=== PATIENT | male | born 1990 | race Caucasian/White ===

== ENCOUNTER 2018-10-02 06:46 | Emergency (ER) | payer OTHER ==
[~2018-10-02] VITALS: Ht 167.6 cm; Wt 88.3 kg
[~2018-10-02 06:46] MED LIST: ACET500C5 PO; AMOX500C2 PO; CIPR500T4 PO; DICY20TA59 PO; HYDR-4011 PO; IBUP-1542 PO; LORA1TAB54 PO; METR500T PO; ONDA4TAB14 PO; PROM6.25 PO
[2018-10-02 06:50] VITALS: Ht 167.6 cm; Wt 88.3 kg
[2018-10-02] MEDS ORDERED: KETOROLAC 15 MG INJ IV STA (07:02)
[2018-10-02] MEDS ORDERED: SOD CHLORIDE 0.9% 1,000 ML IV STA (07:02)
[2018-10-02] MEDS ORDERED: ONDANSETRON 4 MG INJ IV STA (07:02)
[2018-10-02] MEDS ORDERED: OXYCODONE/ACETAMINOPHEN (5/325) TAB PO ONE (07:30)
--- NOTE | 2018-10-02 08:43 | ERD ---
ER Documentation Chief Complaint Chief Complaint headache x 2 weeks HPI 28-year-old man complains of fever, headache, mild cough, body aches times 4-5 days he denies chest pain or shortness of breath, no neck pain or stiffness, no rash, no recent travel or sick contacts, no recent antibiotic use. Patient denies abdominal pain, no vomiting or diarrhea. Patient has had multiple ER visits for infectious illness, URI symptoms and is also had previous inpatient infectious disease consultation over the last 6 years. ROS All systems reviewed and are negative except as per history of present illness. Medications Home Meds Active Scripts Cephalexin* (Keflex*) 500 Mg Capsule, 500 MG PO TID for 7 Days, CAP Prov:IDANIA HOUSTON MD 10/02/18 Ibuprofen* (Motrin*) 600 Mg Tab, 600 MG PO Q8 PRN for PAIN AND/OR INFLAMMATION, #30 TAB Prov:IDANIA HOUSTON MD 10/02/18 Discontinued Reported Medications [None] No Conflict Check 03/03/10 Discontinued Scripts Metronidazole* (Flagyl*) 500 Mg Tablet, 500 MG PO TID for 7 Days, TAB Prov:SUZY MONTOYA NP 05/17/16 Ciprofloxacin Hcl* (Ciprofloxacin Hcl*) 500 Mg Tablet, 500 MG PO BID for 7 Days, TAB Prov:SUZY MONTOYA NP 05/17/16 Ondansetron (Ondansetron Odt) 4 Mg Tab.rapdis, 4 MG PO Q8 PRN for NAUSEA AND/OR VOMITING, #30 TAB Prov:SUZY MONTOYA NP 05/17/16 Ibuprofen* (Motrin*) 600 Mg Tab, 600 MG PO Q6H PRN for PAIN AND OR ELEVATED TEMP, #30 TAB Prov:SUZY MONTOYA NP 05/17/16 Dicyclomine Hcl* (Bentyl*) 20 Mg Tablet, 20 MG PO QID, #20 TAB Prov:SUZY MONTOYA NP 05/17/16 Hydrocodone/Acetaminophen ([place] 5-325 Tablet) 1 Each Tablet, 1 TAB PO Q6H PRN for PAIN, #20 TAB Prov:SUZY MONTOYA NP 05/17/16 Acetaminophen* (Tylophen*) 500 Mg Capsule, 1 CAP PO Q4 PRN for PAIN AND OR ELEVATED TEMP, #20 CAP Prov:FELICE MCCORMICKC 08/27/15 Promethazine w/Codeine* (Phenergan w/Codeine* Syrup) 5 Ml Syrup, 10 ML PO Q4H PRN for COUGH, #120 ML Prov:FELICE MCCORMICK-C 08/27/15 Loratadine/Pseudoephedrine* (Claritin-D* 12 Hr) 5-120 Mg Tab.er.12h, 1 TAB PO Q12, #10 TAB.SA Prov:FELICE MCCORMICKC 08/27/15 Amoxicillin* (Amoxicillin*) 500 Mg Cap, 500 MG PO BID for 10 Days, CAP Prov:FELICE MCCORMICK-C 08/27/15 Amoxicillin* (Amoxicillin*) 500 Mg Cap, 500 MG PO TID for 10 Days, CAP Prov:SUZY MONTOYA NP 03/15/15 Allergies Allergies: Coded Allergies: No Known Allergies (Verified Allergy, Mild, 05/16/16) PMhx/Soc Medical and Surgical Hx: pt denies Medical Hx, pt denies Surgical Hx History of Surgery: No Anesthesia Reaction: No Hx Neurological Disorder: No Hx Respiratory Disorders: No Hx Cardiac Disorders: No Hx Psychiatric Problems: No Hx Alcohol Use: No Hx Substance Use: No Hx Tobacco Use: No Smoking Status: Never smoker FmHx Family History: No diabetes Physical Exam Vitals Vital Signs Date Temp Pulse Resp B/P (MAP) Pulse Ox O2 O2 Flow FiO2 Time Delivery Rate 10/02/18 100.4 102 16 118/66 98 Room Air 08:10 (83) 10/02/18 103.6 110 28 143/91 97 06:50 (108) Physical Exam GENERAL: Well-developed, well-nourished, febrile, mild discomfort, nontoxic in appearance HEENT: Moist mucous membranes, pink conjunctiva, no cervical spine tenderness or step-off deformities, no goiter, no jaundice or icterus, extraocular movements intact without pain. No submandibular induration, and no pharyngeal erythema NEURO: Alert and oriented 3, cranial nerves II through XII intact bilaterally, pupils equal round reactive to light, no focal deficits or facial asymmetry, sensation intact distally Strength 5/5 in upper and lower extremities bilaterally CARDIAC: Tachycardic and regular, no murmurs rubs or gallops LUNGS: Clear bilaterally no wheezing crackles or stridor ABDOMEN: Soft nontender, no guarding, no rigidity, no rebound, no psoas sign no obturator sign. SKIN: Warm and dry to touch, no abrasions, contusions, or hematomas, no lacerations, no ecchymosis, no target lesions, and without ulcers EXTREMITIES: No clubbing cyanosis or edema, calves are bilaterally symmetrical, no Homans sign, no popliteal cord sign. Distal pulses equal and bilateral PSYCH: Anxious Result Diagram: 10/02/18 0705 10/02/18 0705 Results 24 hrs Laboratory Tests Test 10/02/18 06:59 10/02/18 07:02 10/02/18 07:05 10/02/18 08:54 POC Venous 0.7 mmol/L Lactate HIV (1&2) NEGATIVE Antibody White Blood Count 10.9 10^3/ul Red Blood Count 4.83 10^6/ul Hemoglobin 14.5 g/dl Hematocrit 41.5 % Mean Corpuscular 85.9 fl Volume Mean Corpuscular 30.0 pg Hemoglobin Mean Corpuscular 34.9 g/dl Hemoglobin Concen t Red Cell 12.3 % Distribution Width Platelet Count 195 10^3/UL Mean Platelet 11.1 fl Volume Immature 0.400 % Granulocytes % Neutrophils % 74.5 % Lymphocytes % 15.2 % Monocytes % 8.8 % Eosinophils % 0.7 % Basophils % 0.4 % Nucleated Red 0.0 /100WBC Blood Cells % Immature 0.040 10^3/ul Granulocytes # Neutrophils # 8.1 10^3/ul Lymphocytes # 1.7 10^3/ul Monocytes # 1.0 10^3/ul Eosinophils # 0.1 10^3/ul Basophils # 0.0 10^3/ul Nucleated Red 0.0 10^3/ul Blood Cells # Sodium Level 141 mmol/L Potassium Level 4.0 mmol/L Chloride Level 104 mmol/L Carbon Dioxide 28 mmol/L Level Anion Gap 9 Blood Urea 14 mg/dl Nitrogen Creatinine 0.87 mg/dl Est Glomerular > 60 mL/min Filtrat Rate mL/min Glucose Level 110 mg/dl Calcium Level 9.3 mg/dl Total Bilirubin 0.9 mg/dl Direct Bilirubin 0.00 mg/dl Indirect 0.9 mg/dl Bilirubin Aspartate Amino 37 IU/L Transf (AST/SGOT) Alanine 36 IU/L Aminotransferase (ALT/SGPT) Alkaline 78 IU/L Phosphatase Total Protein 7.4 g/dl Albumin 4.3 g/dl Globulin 3.10 g/dl Albumin/Globulin 1.38 Ratio Lipase 154 U/L Urine Color YELLOW Urine Clarity SLIGHTLY CLOUDY Urine pH 5.0 Urine Specific 1.014 Welch Urine Ketones NEGATIVE mg/dL Urine Nitrite NEGATIVE mg/dL Urine Bilirubin NEGATIVE mg/dL Urine NEGATIVE mg/dL Urobilinogen Urine Leukocyte TRACE More[place]ita/ul Esterase Urine Microscopic 1 /HPF RBC Urine Microscopic 9 /HPF WBC Urine Bacteria FEW /HPF Urine Mucus MANY /HPF Urine Hemoglobin NEGATIVE mg/dL Urine Glucose NEGATIVE mg/dL Urine Total NEGATIVE mg/dl Protein Current Medications Medications Dose Sig/Judith Start Time Status Last (Trade) Ordered Route PRN Stop Time Admin Dose Reason Admin Sodium 1,000 ml @ Q30M STAT 10/02/18 DC 10/02/18 Chloride 2,000 mls/hr IV 07:02 07:16 10/02/18 07:31 Ondansetron 4 mg ONCE STAT 10/02/18 DC 10/02/18 HCl (Zofran IV 07:02 07:42 Inj) 10/02/18 07:08 Ketorolac 15 mg ONCE STAT 10/02/18 DC 10/02/18 Tromethamine IV 07:02 07:42 (Toradol) 10/02/18 07:08 Oxycodone/ 1 tab ONCE ONCE 10/02/18 DC 10/02/18 Acetaminophen PO 07:30 07:42 (Percocet 10/02/18 07:31 (5/ 325)) Ceftriaxone 50 ml @ ONCE ONCE 10/02/18 DC 10/02/18 Sodium 100 mls/hr IVPB 09:30 09:47 10/02/18 09:59 Procedures/MDM IV line was established patient was placed on registered nurse cardiac telemetry rhythm strip revealed a sinus tachycardia at 110 bpm with upright P and T waves. Patient was febrile, blood cultures ordered results are pending I will follow-up. I administered 2 L normal saline IV, Toradol 15 mg IV, Zofran 4 mg IV, and Percocet 1 tablet p.o. CBC and electrolytes were normal, liver function tests were normal, urinalysis was positive for infection, lactic acid level was low. I do not suspect sepsis. Chest X-ray 1V Interpreted by me: Soft Tissue: No acute abnormalities Bones: No acute abnormalities Mediastinum/Cardiac Silhouette/Lungs: No acute abnormalities Influenza swabs were negative I did administer ceftriaxone 1 g IV x1. Patient's tachycardia resolved, vital signs are normal at this time, he is afebrile, he is tolerating p.o., and his pain is resolved. He looks well and will be discharged to follow-up with PMD. Differential diagnoses considered, included but not limited to acute coronary syndrome, pulmonary embolism, aortic dissection, abdominal aortic aneurysm, sepsis, stroke, meningitis, encephalitis, pneumonia, appendicitis, cholecystitis, bowel obstruction, pyelonephritis, nephrolithiasis, cystitis, as well as metabolic, hematologic, and electrolyte abnormalities. As well as abscess, cellulitis, fractures, and dislocations. Patient feels much better at this time, and vital signs are normal, symptoms have improved. I did give strict instructions to return to the ED if symptoms continue or worsen, patient will otherwise follow-up with primary care physician. Patient understood instructions and agreed to plan. Disclaimer: Inadvertent spelling and grammatical errors are likely due to EHR/dictation software use and do not reflect on the overall quality of patient care. Also, please note that the electronic time recorded on this note does not necessarily reflect the actual time of the patient encounter. Departure Diagnosis: Primary Impression: Upper respiratory infection URI type: acute nasopharyngitis (common cold) Qualified Codes: J00 - Acute nasopharyngitis [common cold] Additional Impressions: Acute UTI Headache Headache type: tension-type Headache chronicity pattern: acute headache Intractability: not intractable Qualified Codes: G44.209 - Tension-type headache, unspecified, not intractable Condition: IDANIA Bertrand MD Oct 02, 2018 08:43
[2018-10-02] MEDS ORDERED: CEFTRIAXONE 1 GM/50 ML (PMX) 50 ML IVPB ONE (09:30)
[2018-10-02] MEDS ORDERED: CEPH-443 PO (09:34)
[2018-10-02] MEDS ORDERED: IBUP-1542 PO (09:34)
[2018-10-02 10:30] VITALS: BP 103/58; PULSE 77; RESP 16
== END 2018-10-02 10:30 | disposition home or self-care (01) ==
LOC: E/R 06:46
DX: J00 Acute nasopharyngitis [common cold] (principal); N39.0 Urinary tract infection, site not specified; G44.209 Tension-type headache, unspecified, not intractable; R07.9 Chest pain, unspecified
CPT/HCPCS: 36415; 71045; 80053; 81001; 83605; 83690; 85025; 86703; 87040; 87086; 87400; 87536; 96374; 96375; J0696; J1885; J2405; J7030; Z7502; Z7610

== ENCOUNTER 2018-10-02 16:06 | Emergency (ER) | payer OTHER ==
[~2018-10-02] VITALS: Ht 172.7 cm; Wt 90.3 kg
[~2018-10-02 16:06] MED LIST changes: +CEPH-443 PO
[2018-10-02 16:16] VITALS: BP 133/73; PULSE 87; RESP 18; Ht 172.7 cm; Wt 90.3 kg
--- NOTE | 2018-10-02 19:35 | ERD ---
ER Documentation Chief Complaint Chief Complaint HEADACHE AND FEVER, DX UTI EARLIER TODAY, HPI Patient is a 28-year-old male who presents with fever. The patient was seen this morning and was diagnosed with UTI and URI. He was given a prescription for Keflex and ibuprofen. He has had symptoms for the past 2 weeks. He complains of back pain and fever. However he said he took the medicines and was still continued to have fever so came back to the emergency department for evaluation. Upon review of old medical records this is the patient's 13th visit to the ER since 2006. ROS All systems reviewed and are negative except as per history of present illness. Medications Home Meds Active Scripts Cephalexin* (Keflex*) 500 Mg Capsule, 500 MG PO TID for 7 Days, CAP Prov:IDANIA HOUSTON MD 10/02/18 Ibuprofen* (Motrin*) 600 Mg Tab, 600 MG PO Q8 PRN for PAIN AND/OR INFLAMMATION, #30 TAB Prov:IDANIA HOUSTON MD 10/02/18 Discontinued Reported Medications [None] No Conflict Check 03/03/10 Discontinued Scripts Metronidazole* (Flagyl*) 500 Mg Tablet, 500 MG PO TID for 7 Days, TAB Prov:SUZY MONTOYA NP 05/17/16 Ciprofloxacin Hcl* (Ciprofloxacin Hcl*) 500 Mg Tablet, 500 MG PO BID for 7 Days, TAB Prov:SUZY MONTOYA NP 05/17/16 Ondansetron (Ondansetron Odt) 4 Mg Tab.rapdis, 4 MG PO Q8 PRN for NAUSEA AND/OR VOMITING, #30 TAB Prov:SUZY MONTOYA NP 05/17/16 Ibuprofen* (Motrin*) 600 Mg Tab, 600 MG PO Q6H PRN for PAIN AND OR ELEVATED TEMP, #30 TAB Prov:SUZY MONTOYA NP 05/17/16 Dicyclomine Hcl* (Bentyl*) 20 Mg Tablet, 20 MG PO QID, #20 TAB Prov:SUZY MONTOYA NP 05/17/16 Hydrocodone/Acetaminophen ([employer] 5-325 Tablet) 1 Each Tablet, 1 TAB PO Q6H PRN for PAIN, #20 TAB Prov:SUZY MONTOYA NP 05/17/16 Acetaminophen* (Tylophen*) 500 Mg Capsule, 1 CAP PO Q4 PRN for PAIN AND OR ELEVATED TEMP, #20 CAP Prov:FELICE MCCORMICK PA-C 08/27/15 Promethazine w/Codeine* (Phenergan w/Codeine* Syrup) 5 Ml Syrup, 10 ML PO Q4H PRN for COUGH, #120 ML Prov:FELICE MCCORMICK PA-C 08/27/15 Loratadine/Pseudoephedrine* (Claritin-D* 12 Hr) 5-120 Mg Tab.er.12h, 1 TAB PO Q12, #10 TAB.SA Prov:FELICE MCCORMICK PA-C 08/27/15 Amoxicillin* (Amoxicillin*) 500 Mg Cap, 500 MG PO BID for 10 Days, CAP Prov:FELICE MCCORMICK PA-C 08/27/15 Amoxicillin* (Amoxicillin*) 500 Mg Cap, 500 MG PO TID for 10 Days, CAP Prov:SUZY MONTOYA NP 03/15/15 Allergies Allergies: Coded Allergies: No Known Allergies (Verified Allergy, Mild, 05/16/16) PMhx/Soc Medical and Surgical Hx: pt denies Medical Hx History of Surgery: No Anesthesia Reaction: No Hx Neurological Disorder: No Hx Respiratory Disorders: No Hx Cardiac Disorders: No Hx Psychiatric Problems: No Hx Alcohol Use: No Hx Substance Use: No Hx Tobacco Use: No Smoking Status: Never smoker FmHx Family History: No diabetes Physical Exam Vitals Vital Signs Date Temp Pulse Resp B/P (MAP) Pulse Ox O2 O2 Flow FiO2 Time Delivery Rate 10/02/18 100.6 87 18 133/73 97 16:16 (93) Physical Exam Const: No acute distress Head: Atraumatic Eyes: Normal Conjunctiva ENT: Normal External Ears, Nose and Mouth. Neck: Full range of motion. No meningismus. Resp: Clear to auscultation bilaterally Cardio: Regular rate and rhythm, no murmurs Abd: Soft, non tender, non distended. Normal bowel sounds Skin: No petechiae or rashes Back: No midline or flank tenderness Ext: No cyanosis, or edema Neur: Awake and alert Psych: Normal Mood and Affect Procedures/MDM Patient is a 28-year-old male who was recently diagnosed with UTI and URI. He came back within a few hours for repeat evaluation. I told him that this would not be enough time for the antibiotics to start working and that he should give it at least 24-48 hours. I do not believe requires further workup and I believe outpatient management is appropriate. The patient should continue the Keflex that was prescribed to him as well as use ibuprofen and Tylenol for symptom medic relief. Departure Diagnosis: Primary Impression: UTI (urinary tract infection) Urinary tract infection type: acute cystitis Hematuria presence: without hematuria Qualified Codes: N30.00 - Acute cystitis without hematuria Additional Impression: Fever Fever type: unspecified Qualified Codes: R50.9 - Fever, unspecified Condition: Fair Patient Instructions: Fever Control (Adult) Referrals: Your doctor Additional Instructions: Call your primary care doctor TOMORROW for an appointment during the next 1 WEEK.Tell the membership secretary that you were referred from this facility.See the doctor sooner or return here if your condition worsens before your appointment time. EMMA MOORE MD Oct 02, 2018 19:35
== END 2018-10-02 16:40 | disposition home or self-care (01) ==
LOC: E/R 16:06
DX: N30.00 Acute cystitis without hematuria (principal)
CPT/HCPCS: 99283

== ENCOUNTER 2018-11-26 23:12 | Emergency (ER) | payer OTHER ==
[~2018-11-26] VITALS: Ht 170.2 cm; Wt 90.1 kg
[~2018-11-26 23:12] MED LIST changes: -ACET500C5 PO; -AMOX500C2 PO; -CIPR500T4 PO; -DICY20TA59 PO; -HYDR-4011 PO; -LORA1TAB54 PO; -METR500T PO; -ONDA4TAB14 PO; -PROM6.25 PO
[2018-11-26 23:19] VITALS: Ht 170.2 cm; Wt 90.1 kg
[2018-11-27] MEDS ORDERED: KETOROLAC 60 MG INJ IM STA (00:47)
[2018-11-27] MEDS ORDERED: ACETAMINOPHEN 500 MG TAB PO STA (00:47)
[2018-11-27] MEDS ORDERED: ACET500C5 PO (01:34)
[2018-11-27] MEDS ORDERED: GUAI118L22 PO (01:34)
[2018-11-27] MEDS ORDERED: IBUP-1544 PO (01:34)
[2018-11-27] MEDS ORDERED: CETI10TA19 PO (01:34)
[2018-11-27 02:06] VITALS: BP 131/82; PULSE 70; RESP 18
--- NOTE | 2018-11-27 03:30 | ERD ---
ER Documentation Chief Complaint Chief Complaint fever/cough/body aches x 3 days HPI History of Present Illness: 28-year-old male who denies past medical history coming in today with complaint of subjective fever with unknown T-max, productive cough with yellow phlegm, body aches is been present for 3 days. Associated symptoms include decreased appetite. At home pharmacological/nonpharmacological treatment for symptoms: Acetaminophen at 7 PM Denies social concerns; Denies recent foreign travel ROS All systems reviewed and are negative except as per history of present illness. Medications Home Meds Active Scripts Acetaminophen* (Tylophen*) 500 Mg Capsule, 1000 MG PO Q6H PRN for MILD PAIN(1- 3)OR ELEVATED TEMP, #30 TAB Prov:DORIS SALMON NP 11/27/18 Ibuprofen* (Ibuprofen*) 800 Mg Tablet, 800 MG PO Q6H PRN for MILD PAIN(1-3)OR ELEVATED TEMP, #30 TAB Prov:DORIS SALMON NP 11/27/18 Cetirizine Hcl* (Cetirizine Hcl*) 10 Mg Tablet, 10 MG PO DAILY for ALLERGIES/COUGH/MUCUS, #30 TAB Prov:DORIS SALMON NP 11/27/18 Guaifenesin/Codeine Phosphate (CHERATUSSIN AC SYRUP) 118 Ml Liquid, 10 ML PO Q6H PRN for COUGH/PHYLM/CHEST CONGESTION, #118 ML Prov:DORIS SALMON NP 11/27/18 Cephalexin* (Keflex*) 500 Mg Capsule, 500 MG PO TID for 7 Days, CAP Prov:IDANIA HOUSTON MD 10/02/18 Ibuprofen* (Motrin*) 600 Mg Tab, 600 MG PO Q8 PRN for PAIN AND/OR INFLAMMATION, #30 TAB Prov:IDANIA HOUSTON MD 10/02/18 Allergies Allergies: Coded Allergies: No Known Allergies (Verified Allergy, Mild, 05/16/16) PMhx/Soc Medical and Surgical Hx: pt denies Surgical Hx History of Surgery: No Anesthesia Reaction: No Hx Neurological Disorder: No Hx Respiratory Disorders: No Hx Cardiac Disorders: No Hx Psychiatric Problems: No Hx Miscellaneous Medical Probl: Yes (poss meningitis last year) Hx Alcohol Use: No Hx Substance Use: No Hx Tobacco Use: No Smoking Status: Never smoker FmHx Family History: No diabetes, No coronary disease Physical Exam Vitals Vital Signs Date Temp Pulse Resp B/P (MAP) Pulse Ox O2 O2 Flow FiO2 Time Delivery Rate 11/27/18 99.3 70 18 131/82 98 Room Air 02:06 (98) 11/27/18 99.6 01:05 11/26/18 99.4 81 18 166/85 99 23:19 (112) Physical Exam Const: No acute distress Head: Atraumatic Eyes: Normal Conjunctiva ENT: Normal External Ears, Nose and Mouth. no erythema to tympanic membranes, no bulging, no perforation. Neck: Full range of motion. No meningismus. Resp: Clear to auscultation bilaterally Cardio: Regular rate and rhythm, no murmurs Abd: Soft, non tender, non distended. Normal bowel sounds Skin: No petechiae or rashes Back: No midline or flank tenderness Ext: No cyanosis, or edema Neur: Awake and alert Psych: Normal Mood and Affect Results 24 hrs Current Medications Medications Dose Sig/Judith Start Time Status Last (Trade) Ordered Route PRN Stop Time Admin Dose Reason Admin 1,000 mg ONCE STAT 11/27/18 DC 11/27/18 Acetaminophen PO 00:47 11/27/18 01:05 (Tylenol 00:49 Tab) Ketorolac 60 mg ONCE STAT 11/27/18 DC 11/27/18 Tromethamine IM 00:47 11/27/18 01:05 (Toradol) 00:49 Procedures/MDM ED course includes a thorough examination and history. Medications: Ketorolac-Acetaminophen Imaging: Labs: Influenza Low suspicion for life-threatening medical emergency. Otherwise healthy patient presenting with constellation of symptoms likely representing uncomplicated viral syndrome/allergic rhinitis as characterized by history, physical exam findings, lab findings. Influenza negative. Patient reassessment: Patient hemodynamically stable. Patient with decrease in body aches after medication administration. Patient is afebrile at this time. No indications for antibiotics at this time. No respiratory distress, otherwise relatively well appearing and nontoxic. Disposition given. Patient educated on diagnoses, prescriptions, follow-up care, return precautions. Strict return precautions given for worsening condition; questions answered discharge. Disposition for discharge with followup in 2 days with PCP/clinic. Departure Diagnosis: Primary Impression: Viral syndrome Additional Impressions: Cough productive of yellow sputum Allergic rhinitis Allergic rhinitis trigger: unspecified Allergic rhinitis seasonality: unspecified Qualified Codes: J30.9 - Allergic rhinitis, unspecified Condition: Stable Patient Instructions: Allergic Rhinitis, Viral Syndrome (Adult) Referrals: [facility] YOU HAVE RECEIVED A MEDICAL SCREENING EXAM AND THE RESULTS INDICATE THAT YOU DO NOT HAVE A CONDITION THAT REQUIRES URGENT TREATMENT IN THE EMERGENCY DEPARTMENT. FURTHER EVALUATION AND TREATMENT OF YOUR CONDITION CAN WAIT UNTIL YOU ARE SEEN IN YOUR DOCTORS OFFICE WITHIN THE NEXT 1-2 DAYS. IT IS YOUR RESPONSIBILITY TO MAKE AN APPOINTMENT FOR FOLOW-UP CARE. IF YOU HAVE A PRIMARY DOCTOR --you should call your primary doctor and schedule an appointment IF YOU DO NOT HAVE A PRIMARY DOCTOR YOU CAN CALL OUR PHYSICIAN REFERRAL HOTLINE AT IF YOU CAN NOT AFFORD TO SEE A PHYSICIAN YOU CAN CHOSE FROM THE FOLLOWING [facility] [address] [facility] [address] [facility] [facility] [address] [facility] [address] [facility] [address] [facility] [address] [facility] [facility] YOU HAVE RECEIVED A MEDICAL SCREENING EXAM AND THE RESULTS INDICATE THAT YOU DO NOT HAVE A CONDITION THAT REQUIRES URGENT TREATMENT IN THE EMERGENCY DEPARTMENT. FURTHER EVALUATION AND TREATMENT OF YOUR CONDITION CAN WAIT UNTIL YOU ARE SEEN IN YOUR DOCTORS OFFICE WITHIN THE NEXT 1-2 DAYS. IT IS YOUR RESPONSIBILITY TO MAKE AN APPOINTMENT FOR FOLOW-UP CARE. IF YOU HAVE A PRIMARY DOCTOR --you should call your primary doctor and schedule and appointment IF YOU DO NOT HAVE A PRIMARY DOCTOR YOU CAN CALL OUR PHYSICIAN REFERRAL HOTLINE AT . IF YOU CAN NOT AFFORD TO SEE A PHYSICIAN YOU CAN CHOSE FROM THE FOLLOWING [facility]: [facility] [address] [place] [address] [facility] [address] [place] [address] [facility] [address] [place] [address] Additional Instructions: Thank you very much for allowing us to participate in your care. Your health and safety is our top priority at [facility]. It is important to read all discharge instructions and education provided in your discharge packet. Call your primary care doctor TOMORROW for an appointment during the next 2-4 days and bring all the information and medications prescribed. Have prescriptions filled and follow precisely the directions on the label. -Ibuprofen and acetaminophen is for pain and fever; both medications can be given at the same time if it is time for the next dose (acetaminophen every 4 hours, ibuprofen every 6 hours). It is important to have adequate fever control to prevent febrile complications such as seizures. -Cetirizine as an antihistamine that should not cause drowsiness; take this medication every day for allergy-like symptoms/cough/runny nose. -Guaifenesin/codeine is a cough medication that will help stop the cough; it also contains a ingredient that will help thin the mucus. This medication may cause drowsiness due to the codeine. You may take half the dose if it causes too much drowsiness. Do not operate heavy machinery after taking this medication. If the symptoms get worse and your provider is unavailable, return to the Emergency Department immediately. DORIS SALMON NP November 27, 2018 03:30
== END 2018-11-27 02:26 | disposition home or self-care (01) ==
LOC: FTE 23:12
DX: B34.9 Viral infection, unspecified (principal); J30.9 Allergic rhinitis, unspecified
CPT/HCPCS: 87400; 96372; J1885; Z7502; Z7610

== ENCOUNTER 2019-01-05 05:00 | Emergency (ER) | payer OTHER ==
[~2019-01-05] VITALS: Ht 170.2 cm; Wt 92.0 kg
[~2019-01-05 05:00] MED LIST changes: +ACET500C5 PO; +CETI10TA19 PO; +GUAI118L22 PO; +IBUP-1544 PO
[2019-01-05 05:05] VITALS: BP 129/88; PULSE 82; RESP 18; Ht 170.2 cm; Wt 92.0 kg
[2019-01-05] MEDS ORDERED: IBUPROFEN 800 MG TAB PO ONE (06:30)
[2019-01-05] MEDS ORDERED: NAPR-985 PO (07:23)
--- NOTE | 2019-01-05 07:30 | ERD ---
ER Documentation Chief Complaint Chief Complaint left lower leg pain, twisted left leg while walking 3 days ago HPI 3-year-old male presenting with pain to his left lower leg. 3 days ago patient twisted his ankle and is experiencing pain with ambulation. He denies any numbness or tingling. He has not taken any medications for pain. Denies other medical problems. NKDA. Surgical history denies. Social history denies ROS All systems reviewed and are negative except as per history of present illness. Medications Home Meds Active Scripts Naproxen* (Naprosyn*) 500 Mg Tablet, 500 MG PO BID PRN for PAIN AND/OR INFLAMMATION, #30 TAB Prov:NICOLÁS VIERA PA-C 01/05/19 Acetaminophen* (Tylophen*) 500 Mg Capsule, 1000 MG PO Q6H PRN for MILD PAIN(1- 3)OR ELEVATED TEMP, #30 TAB Prov:DORIS SALMON NP 11/27/18 Ibuprofen* (Ibuprofen*) 800 Mg Tablet, 800 MG PO Q6H PRN for MILD PAIN(1-3)OR ELEVATED TEMP, #30 TAB Prov:DORIS SALMON NP 11/27/18 Cetirizine Hcl* (Cetirizine Hcl*) 10 Mg Tablet, 10 MG PO DAILY for ALLERGIES/COUGH/MUCUS, #30 TAB Prov:DORIS SALMON NP 11/27/18 Guaifenesin/Codeine Phosphate (CHERATUSSIN AC SYRUP) 118 Ml Liquid, 10 ML PO Q6H PRN for COUGH/PHYLM/CHEST CONGESTION, #118 ML Prov:DORIS SALMON NP 11/27/18 Cephalexin* (Keflex*) 500 Mg Capsule, 500 MG PO TID for 7 Days, CAP Prov:IDANIA HOUSTON MD 10/02/18 Ibuprofen* (Motrin*) 600 Mg Tab, 600 MG PO Q8 PRN for PAIN AND/OR INFLAMMATION, #30 TAB Prov:IDANIA HOUSTON MD 10/02/18 Allergies Allergies: Coded Allergies: No Known Allergies (Verified Allergy, Mild, 05/16/16) PMhx/Soc Medical and Surgical Hx: pt denies Surgical Hx History of Surgery: No Anesthesia Reaction: No Hx Neurological Disorder: No Hx Respiratory Disorders: No Hx Cardiac Disorders: No Hx Psychiatric Problems: No Hx Miscellaneous Medical Probl: Yes (post meningitis last year) Hx Alcohol Use: No Hx Substance Use: No Hx Tobacco Use: No Smoking Status: Never smoker FmHx Family History: No diabetes, No coronary disease, No other Physical Exam Vitals Vital Signs Date Temp Pulse Resp B/P (MAP) Pulse Ox O2 O2 Flow FiO2 Time Delivery Rate 01/05/19 98.2 82 18 129/88 97 05:05 (102) Physical Exam GENERAL: The patient is well-appearing, well-nourished, in no acute distress CHEST: Clear to auscultation bilaterally. There are no rales, wheezes or rhonchi. HEART: Regular rate and rhythm. No murmurs, clicks, rubs or gallops. EXTREMITIES: Tender to palpation over left ankle and left tib-fib. No obvious deformity. Mild swelling noted to the ankle. Flexion and extension. Strength 5 out of 5. Compartments soft and pulses intact. NEUROLOGIC: Alert and oriented. Cranial nerves II through XII intact. Motor strength in all 4 extremities with 5 out of 5 strength. Sensation grossly intact. Normal speech and gait. SKIN: Bruising noted to the lateral left ankle. Results 24 hrs Current Medications Medications Dose Sig/Judith Start Time Status Last (Trade) Ordered Route PRN Stop Time Admin Dose Reason Admin Ibuprofen 800 mg ONCE ONCE 01/05/19 DC 01/05/19 (Motrin) PO 06:30 06:18 01/05/19 06:31 Procedures/MDM DIAGNOSTIC IMAGING REPORT Patient: FABRIZIO COFFEY : 1990 Age: 28 Sex: M MR #: [id number] DOS: 01/05/19613 Ordering MD: JUSTIN VIERA PA-C Location: [facility] Room/Bed: PROCEDURE: XR Ankle. CLINICAL INDICATION: Left ankle pain. TECHNIQUE: Three views of the left ankle were performed. COMPARISON: None. FINDINGS: No acute fracture or dislocation is seen. The ankle mortise is symmetric. No radiopaque foreign body is identified. No significant soft tissue swelling is noted. IMPRESSION: 1. No acute fracture or dislocation. DIAGNOSTIC IMAGING REPORT Patient: FABRIZIO COFFEY : 1990 Age: 28 Sex: M MR #: [id number] DOS: 01/05/19613 Ordering MD: JUSTIN VIERA PA-C Location: [facility] Room/Bed: PROCEDURE: XR Tibia and Fibula. CLINICAL INDICATION: Pain. TECHNIQUE: Two views of the left tibia and fibula are available for review. COMPARISON: None available FINDINGS: No acute fracture or dislocation is seen. No radiopaque foreign body is identified. No significant soft tissue swelling is noted. IMPRESSION: 1. No acute fracture or dislocation. ER course: Jay Jay wrap and crutches given in ED. MDM: 28-year-old male presenting with left leg pain. Acute fracture dislocation. I have low suspicion for compartment syndrome. I have low suspicion for tendon or ligament rupture. Patient is discharged with strict ER precautions and told to follow-up with primary care within 1 to 2 days for close evaluation. Patient is told symptoms change or worsen to return immediately to the ER. All questions answered at discharge Departure Diagnosis: Primary Impression: Pain of left leg Condition: Stable Patient Instructions: Sprain, Ankle, With X-Ray Referrals: SHASHANK LOUIS MD [facility] Hours: Mon-Sat 9:00 AM - 5:00 PM [facility] () Usted se amaya hecho un examen mdico de control que le indica que no est en dori condicin que requiera tratamiento urgente en el Departamento de Emergencia. Un estudio ms profundo y el tratamiento de bean condicin pueden esperar sin ningn riesgo hasta que usted sea atendida/o en el consultorio de bean mdico o dori clnica. Es responsabilidad suya arreglar dori mulugeta para el seguimiento del harrison. MANEJO DE CONDICIONES NO URGENTES EN EL FUTURO 1) Si usted tiene un mdico de atencin primaria: Usted debera llamar a bean mdico de atencin primaria antes de venir al departamento de emergencia. Despus de las horas de consultorio, bean doctor o bean asociado/a est disponible por telfono. El mdico o enfermero de torsten en el servicio telefnico puede asesorarle por mackenzie medio para atender el problema, o harrison contrario se puede programar dori mulugeta. 2) Si usted no tiene un mdico de atencin primaria: Llame al mdico o clnica de referencia que aparece abajo anabel las horas de consultorio para hacer dori mulugeta para que le vean. CLINICAS: [facility] [phone] [facility] [phone] [facility] [phone] [facility] [phone] [facility]. [place] [phone] [facility] [phone] [address] Additional Instructions: FOLLOW UP WITH YOUR PRIMARY CARE PHYSICIAN TOMORROW.Return to this facility if you are not improving as expected. NICOLÁS VIERA PA-C Jan 05, 2019 07:30
== END 2019-01-05 07:40 | disposition home or self-care (01) ==
LOC: FTE 05:00
DX: M79.605 Pain in left leg (principal)
CPT/HCPCS: 73590; 73610; Z7502; Z7610